=== PATIENT | male | born 1985 ===

== ENCOUNTER → 2017-07-21 12:17 | Emergency (ER) | payer SELFPAY ==
--- NOTE | 2017-07-28 18:10 | UC ---
General HPI - HPI Summary HPI Summary: 32 year old male presents for physical exam for [employer]. - History of Current Complaint Stated Complaint: PRE EMPLOYMENT PHYSICAL Time Seen by Provider: 07/21/17 14:42 Hx Obtained From: Patient Onset/Duration: Sudden Onset Timing: Constant Onset Severity: Mild Current Severity: None PMH/Surg Hx/FS Hx/Imm Hx Previously Healthy: Yes - Surgical History Surgical History: None - Family History Known Family History: Positive: None - Social History Occupation: Unemployed Alcohol Use: None Review of Systems Constitutional: Negative Skin: Negative Eyes: Negative ENT: Negative Respiratory: Negative Cardiovascular: Negative Gastrointestinal: Negative Genitourinary: Negative Motor: Negative Neurovascular: Negative Musculoskeletal: Negative Neurological: Negative Psychological: Negative All Other Systems Reviewed And Are Negative: Yes Physical Exam Triage Information Reviewed: Yes Vital Signs Reviewed: Yes Eye Exam: Normal ENT Exam: Normal Dental Exam: Normal Neck exam: Normal Neck: Positive: 1 Respiratory Exam: Normal Cardiovascular Exam: Normal Abdominal Exam: Normal Musculoskeletal Exam: Normal Neurological Exam: Normal Psychological Exam: Normal Skin Exam: Normal Course/Dx - Differential Dx - Multi-Symptom Provider Diagnoses: physical exam Discharge - Discharge Plan Condition: Stable Disposition: HOME Referrals: Non Staff,Doctor [Primary Care Provider] - Additional Instructions: physical exam
== END | disposition home or self-care (01) ==
LOC: UCCORT 12:17
DX: Z02.1 Encounter for pre-employment examination (principal)